=== PATIENT | female | born 1950 ===

== ENCOUNTER 2018-07-07 13:15 | Outpatient (CLI) | payer MEDICARE | END 2018-07-07 13:16 | disposition home or self-care (01) | LOC: C.PAT 13:15 | DX: I73.9 Peripheral vascular disease, unspecified (principal) ==

== ENCOUNTER 2018-07-10 05:59 | Day surgery (SDC) | payer MEDICARE ==
[2018-07-07 14:33] VITALS: BMI 26.5
[2018-07-10] MEDS ORDERED: Iodixanol 320 MG/ML 200 ML BOTTLE IV ONE (08:06)
[2018-07-10] MEDS ORDERED: Midazolam 2 MG/2 ML VIAL ONE ×4 (08:50→09:54)
[2018-07-10] MEDS ORDERED: Nitroglycerin 50mg in D5W 50 MG/250 ML BOTTLE IV ONE (09:22)
[2018-07-10] MEDS ORDERED: Verapamil 2 ML ONE (09:23)
--- NOTE | 2018-07-10 19:34 | CARDCATH ---
PROCEDURE DATE: 07/10/2018 INDICATIONS: Becca White is a pleasant 71-year-old female with history of hypertension, diabetes, and hyperlipidemia who underwent CTA showing high-grade bilateral superficial femoral artery stenosis, was brought in for evaluation and treatment of peripheral vascular occlusive disease. PROCEDURES PERFORMED: 1. Distal abdominal aortogram with bilateral iliac runoff. 2. Selective bilateral iliofemoral angiogram with runoff. 3. Atherectomy and percutaneous transluminal angioplasty of left superficial femoral artery. Multiple tandem 80% to 90% stenosis with use of 2.0 solid CSI atherectomy device, additional balloon angioplasty with a 6.0 x 250 drug-coated balloon. Regeneration from 80% down to less than 10% improvement in gradients from 70 mm up to less than 10 mm across the superficial femoral artery. A 6-[place] right femoral arterial access and Mynx closure device for hemostasis. ANGIOGRAPHIC FINDINGS: Left lower extremity: Left common iliac and external iliac are patent. Profunda femoris patent. SFA has glk-lp-oegmsl diffuse tandem 80% to 90% stenosis with a 70 mm gradient. Systolic pressures at the common femoral artery was 120 mm versus at the popliteal was about 50 mm with low pulsatile flow. One-vessel runoff below the knee of the left lower extremity anterior tibial artery which fits the superficial and deep plantar arches. Right lower extremity: Right common iliac and external iliac are patent. Profunda femoris patent. SFA has flh-oc-yrlayg high grade 90% stenosis with 2-vessel runoff below the knee of the anterior tibial artery and peroneal artery. Posterior tibial artery is 100% occluded. Distal reconstitution of the deep plantar arch via collaterals from the peroneal artery. TECHNIQUES FOR INTERVENTION: A 6-[place]qi 45 cm Destination [place] sheath was advanced across the aortoiliac bifurcation to the left common femoral artery. Pullback gradients were calculated which were approximately 70 mm in the SFA. Subsequently, over a 0.17 Viper wire distal protection device was deployed and subsequently a 2.0 solid CSI atherectomy of the SFA and distal SFA was done. Subsequently, additional balloon angioplasty with 6.0 x 250 drug-coated balloon was done. Final angiogram does show regeneration down to less than 10%. Post-angioplasty gradients were calculated which were down to 10 mmHg in the distal aspect. IMPRESSION: Successful atherectomy and angioplasty of the left superficial femoral artery with the use of 2.0 solid CSI atherectomy device in addition to balloon angioplasty with a 6.0 x 250 balloon. RECOMMENDATIONS: The patient can be discharged home in 24 hours. Give the patient dual antiplatelet therapy. Then posterior intervention of the right SFA in one week's time. Vernon Sánchez MD
== END 2018-07-10 14:15 | disposition home or self-care (01) ==
LOC: C.CATHLAB 05:59
PROVIDERS: ATTEND Internal Medicine Interventional Cardiology
DX: I70.203 Unspecified atherosclerosis of native arteries of extremities, bilateral legs (principal); E11.9 Type 2 diabetes mellitus without complications; E78.5 Hyperlipidemia, unspecified; I10 Essential (primary) hypertension
CPT/HCPCS: 36247; 37225; 75625; 75716; 75774; 99152; 99153; C1714; C1760; C1766; C1769; C1884; C1887; C1893; C2623; J1644; J2250; J3010; Q9966

== ENCOUNTER 2018-07-19 08:02 | Inpatient (IN) | payer MEDICARE ==
[2018-07-07 13:27] VITALS: BMI 26.5
[2018-07-19] MEDS ORDERED: Iodixanol 320 MG/ML 200 ML BOTTLE IV ONE (09:27)
[2018-07-19] MEDS ORDERED: Midazolam 2 MG/2 ML VIAL ONE ×2 (09:30→09:37)
[2018-07-19] MEDS ORDERED: Lidocaine 2% MPF (5 ml) Inj ONE (09:40)
[2018-07-19] MEDS ORDERED: Nitroglycerin 50mg in D5W 50 MG/250 ML BOTTLE IV ONE (09:53)
[2018-07-19] MEDS ORDERED: Verapamil 2 ML ONE (09:53)
[2018-07-19] MEDS ORDERED: Labetalol 5mg/ml (4ml) ONE (10:18)
[2018-07-19] MEDS ORDERED: Eptifibatide 20 mg/10mL Inj IVP ONE ×2 (10:31→10:40)
[2018-07-19] MEDS ORDERED: Eptifibatide 0.75 mg/ml 75 MG/100 ML BOTTLE IV ONE (11:02)
[2018-07-19] MEDS ORDERED: Iodixanol 320 MG/ML 100 ML BOTTLE IV ONE (11:43)
[2018-07-19] MEDS ORDERED: Sodium Chloride 0.9% 500 ML IV ONE (12:32)
--- NOTE | 2018-07-19 12:35 | PCM.RRT ---
ONCOLOGY PHYSICIAN ASSISTANT Nurses Assessment - Situation Date: 07/19/18 Time ONCOLOGY PHYSICIAN ASSISTANT was called: 12:32 ONCOLOGY PHYSICIAN ASSISTANT Responder Arrival Time:: 12:24 ONCOLOGY PHYSICIAN ASSISTANT Location:: [place] ONCOLOGY PHYSICIAN ASSISTANT Reason for Call: Change in Mental Status (LOC and seizure like movements per nursing staff in the powerhouse laborer holding area. Resolved but patient with nausea.) - IV IV Inserted during ONCOLOGY PHYSICIAN ASSISTANT?: No - Medication Medications Administered During ONCOLOGY PHYSICIAN ASSISTANT: zofran 4 mg IV, NS already running, but ordered another 500 cc bolus. - Diagnostic Test Ordered CT Scan: Yes (CT scan of head w/o contrast ordered by Dr. Ghanshyam Lindsay, cardio resident.) - Vital Signs Vital Signs: HR 75, O2 94%, 92/52 -> 109/68 w/ repeat BP. Blood glucose 167. - Lyman Coma Scale Coma Scale Eye Opening: Spontaneous Coma Scale Motor: Obeys Commands Movement Coma Scale Verbal: Oriented Coma Scale Total: 15 - Sepsis Screen Part 1 Sepsis Screen Part 1: Hypotensive - Recommendations 5) ONCOLOGY PHYSICIAN ASSISTANT Level of Care Recommendations: Remain in current setting Notifications: Consultations (Dr. Sánchez, regulator assembler, was present.)
[2018-07-19] MEDS ORDERED: Heparin25000 units/250ml 1/2NS 25,000 UNITS/250 ML BAG IV SCH ×2 (13:00)
--- NOTE | 2018-07-19 13:26 | CP.PCM.PCO ---
Physician Communication Note - Physician Communication Note Physician Communication Note: see above
[2018-07-19] MEDS ORDERED: Sodium Chloride 0.9% 1,000 ML IV ONE (13:32)
[2018-07-19] MEDS ORDERED: EPINEPHrine 1 mg/ml (1:1000) Inj SC ONE (13:32)
[2018-07-19 13:37] LABS: BASO % 0.2 % (0.0-2.0); EOS # 0.3 K/uL (0.0-0.7); LYMPH # 2.3 K/uL (1.0-4.3); MONO # 0.8 K/uL (0.0-0.8); RED CELL DISTRIBUTION WIDTH 13.4 % (11.5-14.5)
[2018-07-19 13:45] LABS: EOS % 2.7 % (0.0-4.0); LYMPH % 22.6 % (20.0-40.0); MEAN CORPUSCULAR HEMOGLOBIN 31.4 pg (27.0-31.0); MEAN CORPUSCULAR HGB CONC 33.8 g/dL (33.0-37.0); MEAN PLATELET VOLUME 9.2 fL (7.2-11.7); MONO % 7.3 % (0.0-10.0); NEUT % 67.2 % (50.0-75.0); RBC 3.12 Mil/uL (3.80-5.20); WHITE BLOOD COUNT 10.4 K/uL (4.8-10.8)
[2018-07-19 13:46] LABS: HEMOGLOBIN 9.8 g/dL (11.0-16.0); MEAN CELL VOLUME 92.9 fL (81.0-99.0)
[2018-07-19 13:53] LABS: ALBUMIN 3.4 g/dL (3.5-5.0); ALT/SGPT 41 U/L (9-52); AST/SGOT 45 U/L (14-36); BLOOD UREA NITROGEN 17 mg/dL (7-17); CALCIUM 8.1 mg/dl (8.6-10.4); GFR NON-AFRICAN AMERICAN > 60
--- NOTE | 2018-07-19 14:47 | CP.PCM.CON ---
<Antoni Villa S - Last Filed: 07/19/18 18:57> Meds Allergies/Adverse Reactions: Allergies Allergy/AdvReac Type Severity Reaction Status Date / Time No Known Allergies Allergy Verified 07/07/18 13:27 - Medications Medications: Current Medications Heparin Sodium/Sodium Chloride (Heparin 35216 Units/250ml 1/2 Normal Saline) 25,000 units in 250 mls @ 10.72 mls/hr IV .[id number] NATHANIEL Last Admin: 07/19/18 18:51 Dose: 10.72 mls/hr Results - Labs Result Diagrams: 07/19/18 13:13 07/19/18 13:13 Labs: Laboratory Results - last 24 hr 07/19/18 07/19/18 07/19/18 12:28 13:13 13:13 WBC 10.4 RBC 3.12 L Hgb 9.8 L D Hct 28.9 L MCV 92.9 D MCH 31.4 H MCHC 33.8 RDW 13.4 Plt Count 253 MPV 9.2 Neut % (Auto) 67.2 Lymph % (Auto) 22.6 Fisher % (Auto) 7.3 Eos % (Auto) 2.7 Baso % (Auto) 0.2 Neut # (Auto) 7.0 Lymph # (Auto) 2.3 Fisher # (Auto) 0.8 Eos # (Auto) 0.3 Baso # (Auto) 0.0 Sodium 136 Potassium 3.6 Chloride 108 H Carbon Dioxide 21 L Anion Gap 10 BUN 17 Creatinine 0.9 Est GFR ( Amer) > 60 Est GFR (Non-Af Amer) > 60 POC Glucose (mg/dL) 163 H Random Glucose 175 H D Calcium 8.1 L Total Bilirubin 0.9 AST 45 H D ALT 41 Alkaline Phosphatase 67 Total Protein 6.7 Albumin 3.4 L Globulin 3.3 Albumin/Globulin Ratio 1.0 Blood Type Antibody Screen 07/19/18 13:49 WBC RBC Hgb Hct MCV MCH MCHC RDW Plt Count MPV Neut % (Auto) Lymph % (Auto) Fisher % (Auto) Eos % (Auto) Baso % (Auto) Neut # (Auto) Lymph # (Auto) Fisher # (Auto) Eos # (Auto) Baso # (Auto) Sodium Potassium Chloride Carbon Dioxide Anion Gap BUN Creatinine Est GFR ( Amer) Est GFR (Non-Af Amer) POC Glucose (mg/dL) Random Glucose Calcium Total Bilirubin AST ALT Alkaline Phosphatase Total Protein Albumin Globulin Albumin/Globulin Ratio Blood Type A POSITIVE Antibody Screen Negative Attending/Attestation - Attestation I have personally seen and examined this patient.: Yes I have fully participated in the care of the patient.: Yes I have reviewed all pertinent clinical information: Yes Notes (Text): 07/19/18 18:57 Patient seen and examined 68-year-old female with history of coronary artery disease, status post bilateral carotid endarterectomy was transferred to ICU status post peripheral angioplasty of right popliteal artery and postprocedure hypotensive with groin hematoma. Patient responded to fluids On heparin drip and follow-up PTT IV fluid Follow-up CBC and electrolytes ICU monitoring plavix and aspirin on hold sec to hematoma <Irvin Nunez - Last Filed: 07/19/18 20:02> History of Present Illness - History of Present Illness History of Present Illness: PGY-1 ICU consult note for Dr Villa Pt is a 68 y/o F with PMHx of HTN, CAD, b/l carotid artery stenosis s/p b/l carotid endarterectomy who was transferred to ICU from record label intern s/p peripheral angioplasty 07/19 of R popliteal artery due to lower extremity claudication. UTILITY MECHANIC SUPERVISOR was called in record label intern holding area after the procedure when the patient was complaining of nausea, and she became hypotensive, responding to fluid bolus. Patient was noted hypotensive once again with bp 30/20s, code blue was called, mild hematoma at l groin insertion site, femoral stop applied. Pt responded appropriately to fluids and her vital signs were stablized.. Currently, pt complains of nausea, headache, and mild anxiety. PMHx: HTN, CAD, b/l carotid artery stenosis PSHx: b/l carotid endarterectomy, cardiac cath All: denies Meds: Metoprolol succinate XL 50 mg qd, Metoclopramide 10 mg qd, Losartan/Hctz 25-100 mg qd, Esomeprazole 40 mg qd, Plavix 75 mg qd, Cilostazol 100 mg qd, Atorvastatin 20 mg qd, ASA 81 mg qd Review of Systems - Review of Systems All systems: reviewed and no additional remarkable complaints except Review of Systems: as stated in HPI Past Patient History - Past Medical History & Family History Past Medical History?: Yes - Past Social History Smoking Status: Never Smoked - CARDIAC Hx Cardiac Disorders: Yes Hx Circulatory Problems: Yes (don carotid stenosis) - PULMONARY Hx Respiratory Disorders: No - NEUROLOGICAL Hx Neurological Disorder: Yes Other/Comment: Restless leg syndrome - HEENT Hx HEENT Problems: No - RENAL Hx Chronic Kidney Disease: No - ENDOCRINE/METABOLIC Hx Endocrine Disorders: No - HEMATOLOGICAL/ONCOLOGICAL Hx Blood Disorders: No - INTEGUMENTARY Hx Dermatological Problems: No - MUSCULOSKELETAL/RHEUMATOLOGICAL Hx Musculoskeletal Disorders: No Hx Falls: No Hx Fractures: Yes (LOWER LEFT LEG/ANKLE) Other/Comment: Restless leg syndrome - GASTROINTESTINAL Hx Gastrointestinal Disorders: No - GENITOURINARY/GYNECOLOGICAL Hx Genitourinary Disorders: Yes Other/Comment: HX: BLADDER SLING - PSYCHIATRIC Hx Psychophysiologic Disorder: No Hx Substance Use: No - SURGICAL HISTORY Hx Surgeries: Yes Hx Carotid Endarterectomy: Yes (right and Left) Hx Hysterectomy: Yes Hx Orthopedic Surgery: Yes (Left leg) Other/Comment: Bladder sling, Don breast reduction - ANESTHESIA Hx Anesthesia: Yes Hx Anesthesia Reactions: No Hx Malignant Hyperthermia: No Meds - Medications Medications: Current Medications Heparin Sodium/Sodium Chloride (Heparin 83421 Units/250ml 1/2 Normal Saline) 25,000 units in 250 mls @ 10.72 mls/hr IV .[id number] NATHANIEL Physical Exam - Constitutional Appears: Non-toxic, No Acute Distress - Head Exam Head Exam: ATRAUMATIC, NORMAL INSPECTION, NORMOCEPHALIC - Eye Exam Eye Exam: EOMI, Normal appearance, PERRL - ENT Exam ENT Exam: Mucous Membranes Moist, Normal Exam - Neck Exam Neck exam: Positive for: Normal Inspection - Respiratory Exam Respiratory Exam: Clear to Auscultation Bilateral, NORMAL BREATHING PATTERN. absent: Rales, Rhonchi, Wheezes - Cardiovascular Exam Cardiovascular Exam: REGULAR RHYTHM, +S1, +S2 - GI/Abdominal Exam GI & Abdominal Exam: Normal Bowel Sounds, Soft. absent: Distended - Extremities Exam Additional comments: Femoral stop device left inguinal area - Neurological Exam Neurological exam: Alert, Oriented x3 - Psychiatric Exam Psychiatric exam: Anxious Results - Labs Result Diagrams: 07/19/18 13:13 07/19/18 13:13 Labs: Laboratory Results - last 24 hr 07/19/18 07/19/18 07/19/18 12:28 13:13 13:13 WBC 10.4 RBC 3.12 L Hgb 9.8 L D Hct 28.9 L MCV 92.9 D MCH 31.4 H MCHC 33.8 RDW 13.4 Plt Count 253 MPV 9.2 Neut % (Auto) 67.2 Lymph % (Auto) 22.6 Fisher % (Auto) 7.3 Eos % (Auto) 2.7 Baso % (Auto) 0.2 Neut # (Auto) 7.0 Lymph # (Auto) 2.3 Fisher # (Auto) 0.8 Eos # (Auto) 0.3 Baso # (Auto) 0.0 Sodium 136 Potassium 3.6 Chloride 108 H Carbon Dioxide 21 L Anion Gap 10 BUN 17 Creatinine 0.9 Est GFR ( Amer) > 60 Est GFR (Non-Af Amer) > 60 POC Glucose (mg/dL) 163 H Random Glucose 175 H D Calcium 8.1 L Total Bilirubin 0.9 AST 45 H D ALT 41 Alkaline Phosphatase 67 Total Protein 6.7 Albumin 3.4 L Globulin 3.3 Albumin/Globulin Ratio 1.0 Blood Type Antibody Screen 07/19/18 13:49 WBC RBC Hgb Hct MCV MCH MCHC RDW Plt Count MPV Neut % (Auto) Lymph % (Auto) Fisher % (Auto) Eos % (Auto) Baso % (Auto) Neut # (Auto) Lymph # (Auto) Fisher # (Auto) Eos # (Auto) Baso # (Auto) Sodium Potassium Chloride Carbon Dioxide Anion Gap BUN Creatinine Est GFR ( Amer) Est GFR (Non-Af Amer) POC Glucose (mg/dL) Random Glucose Calcium Total Bilirubin AST ALT Alkaline Phosphatase Total Protein Albumin Globulin Albumin/Globulin Ratio Blood Type A POSITIVE Antibody Screen Negative Assessment & Plan - Assessment and Plan (Free Text) Assessment: Pt is a 68 y/o F with PMHx of HTN, CAD, b/l carotid artery stenosis s/p b/l carotid endarterectomy who was transferred to ICU from record label intern s/p peripheral angioplasty 07/19 of R popliteal artery due to lower extremity claudication, treated with integrilin, UTILITY MECHANIC SUPERVISOR called on patient for questionable seizure activity and code blue called afterwards s/p cath for hypotension, hematoma on the right incision site, fluids given stat, femoral stop device placed on area, hemodynamically stable after tx and was trasferred to ICU. Schedule for right leg angioplasty again in 07/20/18 to see how clot responded to integrilin tx. Plan: 1. Right Popliteal artery thrombosis - Planned for Right LE angiogram in the am with Dr Sánchez -Management as per Dr Sánchez - NPO after midnight - On heparin drip 2. Acute anemia - Hb 9.0 - most likely from hematoma at left inguinal area/insertion site - repeat labs in the am - HOLD plavix, ASA at this time due to risk of bleeding 3. hx of PAD - once cleared by Dr Sánchez, will restart plavix, ASA - Crestor 10 mg PO HS, home atorvastatin not formulary 4. HTN - Hold metoprolol 50 mg and lisinopril/HCTZ due to low blood pressure 5. HLD - Crestor 10 mg PO HS 6. Questionable hx of smoking - confirm with patient on 07/20 7. hx of GERD - protonix 40 IV daily 8. PPX - DVT - Heparin drip - GI - Protonix - HHD now, - NPO after midnight Plan discussed with Dr Allen Nunez, PGY-1 - Date & Time Date: 07/19/18 Time: 16:43
--- NOTE | 2018-07-19 14:53 | CT ---
Date of service: 07/19/2018 PROCEDURE: CT HEAD WITHOUT CONTRAST. HISTORY: Pre/Syncopal episode ; Possible new onset sz COMPARISON: None available TECHNIQUE: Axial computed tomography images were obtained through the head/brain without intravenous contrast. Radiation dose: Total exam DLP = 1166.6 mGy-cm. This CT exam was performed using one or more of the following dose reduction techniques: Automated exposure control, adjustment of the mA and/or kV according to patient size, and/or use of iterative reconstruction technique. FINDINGS: HEMORRHAGE: No intracranial hemorrhage. BRAIN: Diffuse atrophy with prominence of the ventricles and sulci noted. No mass effect or edema. Intracranial atherosclerosis. Scattered white matter hypodensities, which are nonspecific, but often seen with chronic microvascular ischemic disease. Please note that MRI with diffusion imaging is more sensitive in the detection of acute ischemic event. VENTRICLES: No hydrocephalus. CALVARIUM: Unremarkable. PARANASAL SINUSES: Unremarkable as visualized. No significant inflammatory changes. MASTOID AIR CELLS: Unremarkable as visualized. No inflammatory changes. OTHER FINDINGS: None. IMPRESSION: Generalized atrophy. Nonspecific white matter changes.
--- NOTE | 2018-07-19 15:03 | CP.PCM.CON ---
History of Present Illness - History of Present Illness History of Present Illness: Ghanshyam Lindsay PGY1 - Internal Medicine Handle Assembler - Cardiology Note for Dr. Sánchez 68F w/ PMH of BL Carotid artery stenosis s/p Carotid artery endarterectomy, HTN, HLD, Arthritis seen by Dr. Sánchez in office for complaints of lower extremity claudication. Patient underwent peripheral angioplasty by Dr. Sánchez on 07/19 AM. Thrombus was noted in R popliteal artery and was started on integrilin. While in post cath care patient, patient was complaining of nausea, and nursing noted some seizure like activity for which ACCOUNT ADMINISTRATOR was called. Patient was noted to be hypotensive during ACCOUNT ADMINISTRATOR, and initially responded appropriately to fluid bolus. Of note, Central Line was not placed. Post ACCOUNT ADMINISTRATOR, Patient further complained of nausea, and became increasingly hypotensive post cath; Code blue called and patient was again evaluated. Mild hematoma appreciated at L groin insertion site. Fem stop applied and hemostasis achieved. Remainder 12 system ROS otherwise negative PMH: As above PSH: balloon angio - 2016? PMD: Peter Castellano Allergies: NKDA Home Rx: Pramipexole Dihydrochloride 0.125 MG Tablet 1 tablet before bedtime Orally Once a day Metoclopramide HCl 10 MG Tablet Orally Esomeprazole Sodium 40 MG Solution Reconstituted Intravenous Gabapentin 300 MG Capsule 1 capsule Orally Once a day Metoprolol Succinate 50 MG Capsule ER 24 Hour Sprinkle 1 capsule Orally Once a day Hydrochlorothiazide 25 MG Tablet 1 tablet in the morning Orally Once a day Atorvastatin Calcium 20 MG Tablet 1 tablet Orally Once a day Aspir-Low 81 MG Tablet Delayed Release 1 tablet Orally Once a day Family History: Father: Mother: mother-heart disease sister-2 stent placements. Social History: Tobacco Use: No Drugs: No EtOH: no Review of Systems - Review of Systems All systems: reviewed and no additional remarkable complaints except Review of Systems: as per HPI Past Patient History - Past Medical History & Family History Past Medical History?: Yes - Past Social History Smoking Status: Never Smoked - CARDIAC Hx Cardiac Disorders: Yes Hx Circulatory Problems: Yes (don carotid stenosis) - PULMONARY Hx Respiratory Disorders: No - NEUROLOGICAL Hx Neurological Disorder: Yes Other/Comment: Restless leg syndrome - HEENT Hx HEENT Problems: No - RENAL Hx Chronic Kidney Disease: No - ENDOCRINE/METABOLIC Hx Endocrine Disorders: No - HEMATOLOGICAL/ONCOLOGICAL Hx Blood Disorders: No - INTEGUMENTARY Hx Dermatological Problems: No - MUSCULOSKELETAL/RHEUMATOLOGICAL Hx Musculoskeletal Disorders: No Hx Falls: No Hx Fractures: Yes (LOWER LEFT LEG/ANKLE) Other/Comment: Restless leg syndrome - GASTROINTESTINAL Hx Gastrointestinal Disorders: No - GENITOURINARY/GYNECOLOGICAL Hx Genitourinary Disorders: Yes Other/Comment: HX: BLADDER SLING - PSYCHIATRIC Hx Psychophysiologic Disorder: No Hx Substance Use: No - SURGICAL HISTORY Hx Surgeries: Yes Hx Carotid Endarterectomy: Yes (right and Left) Hx Hysterectomy: Yes Hx Orthopedic Surgery: Yes (Left leg) Other/Comment: Bladder sling, Don breast reduction - ANESTHESIA Hx Anesthesia: Yes Hx Anesthesia Reactions: No Hx Malignant Hyperthermia: No Meds Allergies/Adverse Reactions: Allergies Allergy/AdvReac Type Severity Reaction Status Date / Time No Known Allergies Allergy Verified 07/07/18 13:27 - Medications Medications: Current Medications Heparin Sodium/Sodium Chloride (Heparin 19983 Units/250ml 1/2 Normal Saline) 25,000 units in 250 mls @ 10.72 mls/hr IV .[id number] NATHANIEL Physical Exam - Constitutional Additional comments: Somewhat apprehensive appearing Condition improved after fem stop applied - Head Exam Head Exam: ATRAUMATIC, NORMOCEPHALIC - Eye Exam Eye Exam: EOMI, PERRL - Respiratory Exam Respiratory Exam: Clear to Auscultation Bilateral, NORMAL BREATHING PATTERN - Cardiovascular Exam Cardiovascular Exam: REGULAR RHYTHM, +S1, +S2. absent: Systolic Murmur - GI/Abdominal Exam GI & Abdominal Exam: Normal Bowel Sounds, Soft - Extremities Exam Additional comments: LLE Fem Stop applied Lower extremities warm BL - Neurological Exam Neurological exam: Alert, Oriented x3 - Skin Skin Exam: Dry, Intact, Warm Results - Labs Result Diagrams: 07/19/18 21:03 07/19/18 13:13 Labs: Laboratory Results - last 24 hr 07/19/18 07/19/18 07/19/18 12:28 13:13 13:13 WBC 10.4 RBC 3.12 L Hgb 9.8 L D Hct 28.9 L MCV 92.9 D MCH 31.4 H MCHC 33.8 RDW 13.4 Plt Count 253 MPV 9.2 Neut % (Auto) 67.2 Lymph % (Auto) 22.6 [place] % (Auto) 7.3 Eos % (Auto) 2.7 Baso % (Auto) 0.2 Neut # (Auto) 7.0 Lymph # (Auto) 2.3 [place] # (Auto) 0.8 Eos # (Auto) 0.3 Baso # (Auto) 0.0 Sodium 136 Potassium 3.6 Chloride 108 H Carbon Dioxide 21 L Anion Gap 10 BUN 17 Creatinine 0.9 Est GFR ( Amer) > 60 Est GFR (Non-Af Amer) > 60 POC Glucose (mg/dL) 163 H Random Glucose 175 H D Calcium 8.1 L Total Bilirubin 0.9 AST 45 H D ALT 41 Alkaline Phosphatase 67 Total Protein 6.7 Albumin 3.4 L Globulin 3.3 Albumin/Globulin Ratio 1.0 Blood Type Antibody Screen 07/19/18 13:49 WBC RBC Hgb Hct MCV MCH MCHC RDW Plt Count MPV Neut % (Auto) Lymph % (Auto) [place] % (Auto) Eos % (Auto) Baso % (Auto) Neut # (Auto) Lymph # (Auto) [place] # (Auto) Eos # (Auto) Baso # (Auto) Sodium Potassium Chloride Carbon Dioxide Anion Gap BUN Creatinine Est GFR ( Amer) Est GFR (Non-Af Amer) POC Glucose (mg/dL) Random Glucose Calcium Total Bilirubin AST ALT Alkaline Phosphatase Total Protein Albumin Globulin Albumin/Globulin Ratio Blood Type A POSITIVE Antibody Screen Negative Assessment & Plan (1) Peripheral vascular disease Status: Acute (2) Hematoma Status: Acute (3) HTN (hypertension) Status: Acute (4) HLD (hyperlipidemia) Status: Acute - Assessment and Plan (Free Text) Assessment: 68F w/ PMH HTN, HLD, PAD presented to [facility] for outpt angioplasty of RLE found to have a thrombus in her R popliteal during evaluation. Post Cath patient had ACCOUNT ADMINISTRATOR and Code blue 2/2 hypotensive episode due to hematoma from fem angio site. Plan: ICU monitoring for now Maintain HD stability/ Volume Fem Stop removed Further reccs per Dr. Sánchez pending.
[2018-07-19 21:08] LABS: HEMOGLOBIN 8.6 g/dL (11.0-16.0); MEAN CORPUSCULAR HEMOGLOBIN 30.4 pg (27.0-31.0); MEAN CORPUSCULAR HGB CONC 33.1 g/dL (33.0-37.0); MEAN PLATELET VOLUME 8.7 fL (7.2-11.7); RBC 2.83 Mil/uL (3.80-5.20); RED CELL DISTRIBUTION WIDTH 13.4 % (11.5-14.5); WHITE BLOOD COUNT 10.1 K/uL (4.8-10.8)
--- NOTE | 2018-07-19 22:58 | VAS ---
DATE: 07/19/2018 INDICATIONS: Ms. White is a 68-year-old female with history of 20-[id number]-uqqy history of smoking, hypertension, dyslipidemia, who underwent angioplasty atherectomy of left SFA and was brought for staged intervention of the right lower extremity for symptoms of claudication with reported class III. PROCEDURE PERFORMED: Distal abdominal aortogram with bilateral iliac runoff, selective bilateral iliofemoral angiogram with runoff, atherectomy of right superficial femoral artery with use of 2.0 solid CSI atherectomy device. Additional balloon angioplasty with a 5.0 x 150 drug coated balloon. Intraarticular injection of TPA and Integrilin for distal embolization of clot into the popliteal artery. TECHNIQUES OF PROCEDURE: After obtaining informed consent, the patient was brought to the cardiac catheterization lab in postabsorptive nonsedated state. The patient was prepped and draped in the usual sterile fashion. A 2% lidocaine was used for infiltration of anesthesia. Using modified Seldinger technique, a 6-Citizen Of [place] was introduced in the left femoral artery. Subsequently, a left iliofemoral angiogram with runoff was performed using digital subtraction angiographic views of the left SFA, left popliteal [id number] and left foot profile was obtained. Subsequently, over a light wire loop, pigtail catheter was advanced over the abdominal aorta. Abdominal aortogram and bilateral iliac runoff was performed. Subsequently, the catheter was advanced across the aortoiliac bifurcation to the right common femoral artery. Digital subtraction angiographic views of the right SFA, right popliteal, right [id number] and right foot profile was obtained. ANGIOGRAPHIC FINDINGS: Left lower extremity, left common iliac patent, profunda femoris is patent, SFA patent. Popliteal artery patent with two-vessel runoff below the knee of anterior tibial artery and peroneal. Deep plantar arch reconstitute via communicating at the peroneal. Right lower extremity, right common iliac and external iliac patent. Profunda femoris patent. SFA has a mid severely calcific 90% stenotic lesion. Popliteal artery patent. Two-vessel runoff [id number]-[id number] of AT and peroneal. TECHNICAL INTERVENTION: A 6-Citizen [place] 45 cm Destination [place] sheath advanced across the aortoiliac bifurcation over the right common femoral artery. Subsequently, over a 0.038 glide catheter was advanced up to the popliteal artery. Subsequently, a Viper wire was advanced, 2.0 solid CSI atherectomy with SFA was done. Subsequently, balloon angioplasty of the SFA was performed with a 5.0 x 200 drug coated balloon. Subsequent angiogram done showed lesion reduction down to less than 10%. At this point, the distal popliteal artery was visualized to have a clot for which 4 mg of intraarticular TPA was given and two boluses of intraarticular Integrilin along with 3000 of intraarticular heparin was given. Balloon angioplasty of soft plaque clot was done of the popliteal and the AT artery. Subsequent distal flow was noted to be stable. There was some residual thrombus for which the patient will be admitted overnight for IV heparin and IV Integrilin for 18 hours and reevaluate the distal circulation in 12 to 14 hours. Continue the patient on dual antiplatelet therapy. Guideline-directed therapy for peripheral vascular disease. Vernon Sánchez MD
[2018-07-20 06:35] LABS: BASO % 0.2 % (0.0-2.0); EOS # 0.3 K/uL (0.0-0.7); EOS % 3.9 % (0.0-4.0); HEMOGLOBIN 10.5 g/dL (11.0-16.0); LYMPH # 2.2 K/uL (1.0-4.3); LYMPH % 25.1 % (20.0-40.0); MEAN CELL VOLUME 92.9 fL (81.0-99.0); MEAN CORPUSCULAR HEMOGLOBIN 30.5 pg (27.0-31.0); MEAN CORPUSCULAR HGB CONC 32.9 g/dL (33.0-37.0); MEAN PLATELET VOLUME 8.5 fL (7.2-11.7); MONO # 1.1 K/uL (0.0-0.8); MONO % 12.6 % (0.0-10.0); NEUT # 5.1 K/uL (1.8-7.0); NEUT % 58.2 % (50.0-75.0); RBC 3.45 Mil/uL (3.80-5.20); RED CELL DISTRIBUTION WIDTH 13.9 % (11.5-14.5); WHITE BLOOD COUNT 8.8 K/uL (4.8-10.8)
[2018-07-20 06:44] LABS: INR 1.2; PROTHROMBIN TIME 13.2 SECONDS (9.7-12.2)
[2018-07-20 06:52] LABS: ALBUMIN 2.8 g/dL (3.5-5.0); CALCIUM 7.3 mg/dl (8.6-10.4)
[2018-07-20 06:57] VITALS: BP 115/54; RESP 13; O2SAT 99
--- NOTE | 2018-07-20 07:57 | CP.PCM.PN ---
Subjective - Date & Time of Evaluation Date of Evaluation: 07/20/18 Time of Evaluation: 07:57 - Subjective Subjective: Ghanshyam Lindsay DO PGY1 - Internal Medicine [place] - Cardiology Note for Dr. Sánchez Patient was seen and examined this morning at bedside; HD stable s/p 2u prbc. No complaints of chest pain, light headedness, dizziness, sob reported this AM. No change in RLE pain. Objective - Vital Signs/Intake and Output Vital Signs (last 24 hours): Temp Pulse Resp BP Pulse Ox 98.7 F 81 13 115/54 L 99 07/20/18 04:10 07/20/18 06:20 07/20/18 06:20 07/20/18 06:42 07/20/18 06:20 Intake and Output: 07/20/18 07/20/18 06:59 18:59 Intake Total 1287.1 425 Output Total 750 0 Balance 537.1 425 - Medications Medications: Current Medications Acetaminophen (Tylenol 325mg Tab) 650 mg PO Q6 PRN PRN Reason: Pain, moderate (4-7) Pantoprazole Sodium (Protonix Inj) 40 mg IVP DAILY NATHANIEL Rosuvastatin Calcium (Crestor) 10 mg PO HS NATHANIEL Last Admin: 07/19/18 22:00 Dose: 10 mg - Labs Labs: 07/20/18 06:31 07/20/18 06:31 PT 13.2 SECONDS (9.7-12.2) H 07/20/18 06:31 INR 1.2 07/20/18 06:31 APTT 26 SECONDS (21-34) D 07/20/18 06:31 - Constitutional Appears: Well, Non-toxic, No Acute Distress - Head Exam Head Exam: ATRAUMATIC, NORMOCEPHALIC - Eye Exam Eye Exam: EOMI, Normal appearance - ENT Exam ENT Exam: Mucous Membranes Moist - Respiratory Exam Respiratory Exam: Clear to Ausculation Bilateral, NORMAL BREATHING PATTERN. absent: Rales, Rhonchi, Wheezes - Cardiovascular Exam Cardiovascular Exam: RRR, +S1, +S2 - GI/Abdominal Exam GI & Abdominal Exam: Soft. absent: Tenderness - Extremities Exam Additional comments: RLE distal pulses diminished 2+ DP on LLE L groin w/ hematoma appreciated; Fem Stop removed - Neurological Exam Neurological Exam: Alert, Awake, Oriented x3 - Psychiatric Exam Psychiatric exam: Normal Affect, Normal Mood - Skin Skin Exam: Dry, Intact, Normal Color, Warm Assessment and Plan (1) Peripheral vascular disease Status: Acute (2) Hematoma Status: Acute (3) HTN (hypertension) Status: Acute (4) HLD (hyperlipidemia) Status: Acute - Assessment and Plan (Free Text) Assessment: 68F w/ PMH HTN, HLD, PAD presented to [facility] for outpt angioplasty of RLE found to have a thrombus in her R popliteal during evaluation. 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 Plan: Pt. Art deuplex eval demonstrated good flow Post 2u PRBC transfusion, Hb stable Discharge home w/ Xarelto + Plavix Can follow up in office in 1 week (07/27)
--- NOTE | 2018-07-20 11:24 | CARD ---
APPROVED REPORT Date of service: 07/19/2018 EKG Measurement Heart [id number] <Conclusion> Normal sinus rhythm Normal ECG
--- NOTE | 2018-07-20 13:51 | RAD ---
Date of service: 07/20/2018 HISTORY: Hypoxemia COMPARISON: No prior. FINDINGS: LUNGS: No active pulmonary disease. PLEURA: No significant pleural effusion identified, no pneumothorax apparent. CARDIOVASCULAR: No atherosclerotic calcification present No radiographic findings to suggest acute or significant cardiovascular disease. OSSEOUS STRUCTURES: No significant abnormalities. VISUALIZED UPPER ABDOMEN: Normal. OTHER FINDINGS: None. IMPRESSION: No active disease.
[2018-07-20 15:30] LABS: BASO % 0.3 % (0.0-2.0); EOS # 0.4 K/uL (0.0-0.7); EOS % 4.9 % (0.0-4.0); HEMOGLOBIN 10.5 g/dL (11.0-16.0); LYMPH # 2.3 K/uL (1.0-4.3); LYMPH % 26.4 % (20.0-40.0); MEAN CELL VOLUME 92.1 fL (81.0-99.0); MEAN CORPUSCULAR HEMOGLOBIN 31.2 pg (27.0-31.0); MEAN CORPUSCULAR HGB CONC 33.9 g/dL (33.0-37.0); MEAN PLATELET VOLUME 8.6 fL (7.2-11.7); MONO # 0.9 K/uL (0.0-0.8); MONO % 10.2 % (0.0-10.0); NEUT # 5.1 K/uL (1.8-7.0); NEUT % 58.2 % (50.0-75.0); RBC 3.37 Mil/uL (3.80-5.20); RED CELL DISTRIBUTION WIDTH 13.9 % (11.5-14.5); WHITE BLOOD COUNT 8.8 K/uL (4.8-10.8)
[2018-07-20 18:43] VITALS: PULSE 88
[2018-07-20 18:44] VITALS: TEMP 99
--- NOTE | 2018-07-20 19:37 | CP.PCM.DIS ---
Provider - Provider Date of Admission: 07/19/18 12:21 Attending physician: Trip Lindsay MD Consults: 07/19/18 17:51 Cardiology Consult Routine Comment: Consulting Provider: Vernon Sánchez Consulting Physician: Vernon Sánchez Reason for Consult: right popliteal artery claudication, periphr angioplasty Time Spent in preparation of Discharge (in minutes): 40 Hospital Course - Lab Results Lab Results: Most Recent Lab Values WBC 8.8 K/uL (4.8-10.8) 07/20/18 15:18 RBC 3.37 Mil/uL (3.80-5.20) L 07/20/18 15:18 Hgb 10.5 g/dL (11.0-16.0) L 07/20/18 15:18 Hct 31.0 % (34.0-47.0) L 07/20/18 15:18 MCV 92.1 fL (81.0-99.0) 07/20/18 15:18 MCH 31.2 pg (27.0-31.0) H 07/20/18 15:18 MCHC 33.9 g/dL (33.0-37.0) 07/20/18 15:18 RDW 13.9 % (11.5-14.5) 07/20/18 15:18 Plt Count 199 K/uL (130-400) 07/20/18 15:18 MPV 8.6 fL (7.2-11.7) 07/20/18 15:18 Neut % (Auto) 58.2 % (50.0-75.0) 07/20/18 15:18 Lymph % (Auto) 26.4 % (20.0-40.0) 07/20/18 15:18 Cataño % (Auto) 10.2 % (0.0-10.0) H 07/20/18 15:18 Eos % (Auto) 4.9 % (0.0-4.0) H 07/20/18 15:18 Baso % (Auto) 0.3 % (0.0-2.0) 07/20/18 15:18 Neut # (Auto) 5.1 K/uL (1.8-7.0) 07/20/18 15:18 Lymph # (Auto) 2.3 K/uL (1.0-4.3) 07/20/18 15:18 Cataño # (Auto) 0.9 K/uL (0.0-0.8) H 07/20/18 15:18 Eos # (Auto) 0.4 K/uL (0.0-0.7) 07/20/18 15:18 Baso # (Auto) 0.0 K/uL (0.0-0.2) 07/20/18 15:18 PT 13.2 SECONDS (9.7-12.2) H 07/20/18 06:31 INR 1.2 07/20/18 06:31 APTT 26 SECONDS (21-34) D 07/20/18 06:31 Sodium 136 mmol/L (132-148) 07/20/18 06:31 Potassium 4.0 mmol/L (3.6-5.2) 07/20/18 06:31 Chloride 110 mmol/L (98-107) H 07/20/18 06:31 Carbon Dioxide 22 mmol/L (22-30) 07/20/18 06:31 Anion Gap 9 (10-20) L 07/20/18 06:31 BUN 17 mg/dL (7-17) 07/20/18 06:31 Creatinine 1.2 mg/dL (0.7-1.2) 07/20/18 06:31 Est GFR ( Amer) 54 07/20/18 06:31 Est GFR (Non-Af Amer) 44 07/20/18 06:31 POC Glucose (mg/dL) 163 mg/dL (65-110) H 07/19/18 12:28 Random Glucose 126 mg/dL (65-105) H D 07/20/18 06:31 Calcium 7.3 mg/dl (8.6-10.4) L 07/20/18 06:31 Phosphorus 2.8 mg/dL (2.5-4.5) 07/20/18 06:31 Magnesium 1.1 mg/dL (1.6-2.3) L 07/20/18 06:31 Total Bilirubin 1.0 mg/dL (0.2-1.3) 07/20/18 06:31 AST 40 U/L (14-36) H 07/20/18 06:31 ALT 37 U/L (9-52) 07/20/18 06:31 Alkaline Phosphatase 60 U/L (38-126) 07/20/18 06:31 Total Protein 5.6 g/dL (6.3-8.3) L 07/20/18 06:31 Albumin 2.8 g/dL (3.5-5.0) L 07/20/18 06:31 Globulin 2.8 gm/dL (2.2-3.9) 07/20/18 06:31 Albumin/Globulin Ratio 1.0 (1.0-2.1) 07/20/18 06:31 25-OH Vitamin D Total 33.3 NG/ML (30.0-100.0) 07/20/18 06:31 Blood Type A POSITIVE 07/19/18 13:49 Antibody Screen Negative 07/19/18 13:49 - Hospital Course Hospital Course: Hospitalist Discharge Summary Patient was seen at 11:20 AM 07/20/18 Pt is a 68 y/o F with PMHx of HTN, CAD, b/l carotid artery stenosis s/p b/l carotid endarterectomy who was 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 Patient was noted hypotensive once again with bp 30/20s, code blue was called, mild hematoma at l groin insertion site, femoral stop applied. Pt responded appropriately to fluids and her vital signs were stablized. Subsequent HgB/Hct remained stable. Arterial U/S of the Right Leg was performed and determined to have good flow by Paper Deliverer Dr. Sánchez and she was cleared for discharge with follow up with him planned for 07/27/18. Please see the medical record for full details Upon ROS: Currently NO complaints General: AAOx3, NAD, Anxious to get home HEENT: NCA, EOMI, PERRLA, NO cervical lymphadenopathy, NO thyromegaly, NO pharygneal erythema/exudate Cardio: NS1 and NS2, NO M/R/G Resp: CTA B/L, NO R/R/W GI: BSx4, Soft, NT, ND, NO HSM, NO guarding rebound tenderness Ext: Pulses are strong and equal, Capillary Refill is 2 seconds, NO edema, Normal color and temperature Neuro: CN II through XII are grossly intact Skin: Bruising in the left groin area however NO evidence of cellulitis and NO hardness palpate The following instructions were explained to patient and her : 1). Follow up with Dr. Sánchez as scheduled for 07/27/18 at 12 PM. 2). You were provided with a 90 day prescription for the following medications. Please have them filled at your pharmacy: Plavix 75 mg, 1 tablet by mouth at 2 PM Atorvastatin 20 mg, 1 tabet by mouth at 8 PM Xarelto 20 mg, 1 tablet by mouth at 8 AM Losartan/HCTZ 100/25 mg, 1 tablet by mouth at 8 AM Nexium 40 mg, 1 tablet by mouth at 8 AM 3). DO NOT take Aspirin and Pletal anymore until further instructed by Dr. Anna barnes. 4). DO NOT take Metoprolol right now as your blood pressure is at the low end of normal at the time of discharge. You may restart if instructed to do so by Dr. Sánchez after your follow up exam with him on 07/27/18. 5). If You have constipation then you may take 8 ounces of prune juice with breakfast in the morning until you have a bowel movement. DO NOT take any Reglan. 6). Have a safe trip to [place]. Be safe, Be healthy, Be happy. Trip Lindsay D.O. Discharge Exam - Head Exam Head Exam: ATRAUMATIC, NORMOCEPHALIC Discharge Plan - Discharge Medications Prescriptions: Atorvastatin [Lipitor] 20 mg PO DAILY #90 tab Atorvastatin [Lipitor] 20 mg PO DAILY #90 tab Clopidogrel [Plavix] 75 mg PO DAILY #90 tab Esomeprazole Magnesium [Nexium] 40 mg PO DAILY #90 capsule. Losartan/Hydrochlorothiazide [Hyzaar 100-25 Tablet] 1 tab PO DAILY #90 tablet Rivaroxaban [Xarelto] 20 mg PO Q24H #90 tab - Follow Up Plan Condition: GOOD Disposition: HOME/ ROUTINE Instructions: Angiography, Rivaroxaban, Peripheral Vascular (Arterial) Disease (DC), Atorvastatin, Clopidogrel, Esomeprazole, Losartan and Hydrochlorothiazide, Going Home on Blood Thinners Additional Instructions: The following instructions were explained to patient and her : 1). Follow up with Dr. Sánchez as scheduled for 07/27/18 at 12 PM. 2). You were provided with a 90 day prescription for the following medications. Please have them filled at your pharmacy: Plavix 75 mg, 1 tablet by mouth at 2 PM Atorvastatin 20 mg, 1 tabet by mouth at 8 PM Xarelto 20 mg, 1 tablet by mouth at 8 AM Losartan/HCTZ 100/25 mg, 1 tablet by mouth at 8 AM Nexium 40 mg, 1 tablet by mouth at 8 AM 3). DO NOT take Aspirin and Pletal anymore until further instructed by Dr. Sánchez. 4). DO NOT take Metoprolol right now as your blood pressure is at the low end of normal at the time of discharge. You may restart if instructed to do so by Dr. Sánchez after your follow up exam with him on 07/27/18. 5). You have constipation then you may take 8 ounces of prune juice with breakfast in the morning until you have a bowel movement. DO NOT take any Reglan. 6). Have a safe trip to [place]. Be safe, Be healthy, Be happy. Trip Lindsay. Vinod.
--- NOTE | 2018-07-21 13:14 | VASCLAB ---
Date of service: 07/20/2018 PROCEDURE: Right Lower Extremity Arterial Exam. HISTORY: Hx of PAD, s/p angioplasty COMPARISON: None available. TECHNIQUE: Grayscale and duplex Doppler evaluation of the right common femoral, femoral, profunda femoral, popliteal, posterior tibial, anterior tibial and dorsalis pedis arteries was performed. Report prepared by DARRELL Mane, RVT FINDINGS: RIGHT LOWER EXTREMITY: * Common Femoral Artery: Peak Systolic Velocity - 149: Doppler Waveform: Biphasic: Plaque description - Calcific * Profunda Femoral Artery: Peak Systolic Velocity - 229: Doppler Waveform: Biphasic.: Plaque description - Calcific * Femoral Artery o Proximal Segment: Peak Systolic Velocity - 190: Doppler Waveform: Biphasic: Plaque description - Calcific o Middle Segment: Peak Systolic Velocity - 121: Doppler Waveform: Biphasic: Plaque description - Calcific o Distal Segment: Peak Systolic Velocity - 362: Doppler Waveform: Biphasic: Plaque description - Calcific * Popliteal Artery o Proximal Segment: Peak Systolic Velocity - 106: Doppler Waveform: Biphasic: Plaque description - Calcific o Middle Segment: Peak Systolic Velocity - 74: Doppler Waveform: Biphasic: Plaque description - Calcific o Distal Segment: Peak Systolic Velocity - 55: Doppler Waveform: Biphasic: Plaque description - Calcific * Posterior Tibial Artery: Peak Systolic Velocity - 0: Doppler Waveform: Absent: Plaque description - Calcific * Anterior Tibial Artery: Peak Systolic Velocity - 0: Doppler Waveform: Absent: Plaque description - Calcific * Dorsalis Pedis Artery: Peak Systolic Velocity - 47: Doppler Waveform: Monophasic: Plaque description - Calcific OTHER FINDINGS: None. IMPRESSION: RIGHT: Possible occlusion of the right anterior and posterior tibial arteries. 50-75% stenosis of the right profunda femoral and distal superficial femoral arteries. 30-49% stenosis of the right proximal superficial femoral artery.
== END 2018-07-20 19:17 | disposition home or self-care (01) | DRG 920 ==
LOC: C.CATHLAB 08:02 → C.9I 12:21
PROVIDERS: ADMIT Family Medicine; ATTEND Family Medicine
PROC: 30233N1 Transfusion of Nonautologous Red Blood Cells into Peripheral Vein, Percutaneous Approach (ICD-10-PCS; principal; 2018-07-20)
DX: I97.638 Postprocedural hematoma of a circulatory system organ or structure following other circulatory system procedure (principal); I74.3 Embolism and thrombosis of arteries of the lower extremities; D62 Acute posthemorrhagic anemia; I95.9 Hypotension, unspecified; E86.1 Hypovolemia; Y83.8 Other surgical procedures as the cause of abnormal reaction of the patient, or of later complication, without mention of misadventure at the time of the procedure; Y82.8 Other medical devices associated with adverse incidents; I95.81 Postprocedural hypotension; I25.10 Atherosclerotic heart disease of native coronary artery without angina pectoris; G25.81 Restless legs syndrome